=== PATIENT | male | born 1990 | race African-American/Black ===

== ENCOUNTER 2022-11-15 19:05 | Emergency (ER) | payer MEDICAID, OTHER ==
[~2022-11-15] VITALS: Ht 182.9 cm; Wt 127.0 kg
[2022-11-15 19:45] LABS: BASOPHILS % 0.3 % (0.0-2.0); EOSINOPHILS % 1.4 % (0.0-5.0); HEMATOCRIT. 40.1 % (42.0-52.0); HEMOGLOBIN. 13.1 g/dL (14.0-18.0); LYMPHOCYTES % 43.1 % (20.0-50.0); MEAN CORPUSCULAR HEMOGLOBIN 29.3 pg (28.0-32.0); MEAN CORPUSCULAR VOLUME 89.3 fL (80.0-94.0); MEAN PLATELET VOLUME 7.6 fl (7.4-10.4); MONOCYTES % 9.8 % (2.0-8.0); NEUTROPHILS % 45.4 % (40.0-76.0); PLATELET 300 x1000/uL (130-400); RED BLOOD CELL COUNT 4.49 mill/uL (4.7-6.1); RED CELL DISTRIBUTION WIDTH 14.7 % (11.6-14.6)
[2022-11-15 19:51] LABS: CHLORIDE 107 mEq/L (98-107)
[2022-11-15 19:56] LABS: INR 1.1; PARTIAL THROMBOPLASTIN TIME 27.1 sec (23.4-31.0); PROTHROMBIN TIME 11.4 sec (9.6-11.0)
[2022-11-16 00:30] VITALS: BP 161/97
[2022-11-16] MEDS ORDERED: IBUP-2029 MT (00:44)
[2022-11-16] MEDS ORDERED: CYCL10TA21 MT (00:44)
[2022-11-16] MEDS ORDERED: KETOROLAC 60MG/2ML VIAL IM ONE (00:45)
== END 2022-11-16 01:45 | disposition home or self-care (01) ==
LOC: ER 19:05
DX: R07.89 Other chest pain (principal); M54.6 Pain in thoracic spine; J45.909 Unspecified asthma, uncomplicated
CPT/HCPCS: 36415; 71045; 80053; 84484; 85025; 85610; 85730; 93005; 96372; 99285; J1885